=== PATIENT | female | born 1990 | race Caucasian/White ===

== ENCOUNTER 2022-12-31 12:17 | Emergency (ER) | payer OTHER, SELFPAY ==
[2022-12-31 12:34] VITALS: BP 130/66; PULSE 74; RESP 20; TEMP 35.8; O2SAT 99
--- NOTE | 2022-12-31 12:41 | ED.URI ---
HPI - URI/Sore Throat General Chief Complaint: Upper Respiratory Infection Stated Complaint: flu like symptoms Time Seen by Provider: 12/31/22 12:42 Source: patient Mode of arrival: ambulatory Limitations: no limitations History of Present Illness HPI Narrative: 32-year-old female presents with complaint of nasal congestion, sore throat, cough, body aches, chills for 3 days. Afebrile. Reports that she recently had her Mother's and several family members sick. States that they are all on an antibiotic at all feeling better. reports that her niece has strep. Is unsure what the other family members were diagnosed with. Patient denies chest pain and shortness of breath. No nausea vomiting diarrhea. All systems reviewed and negative except as noted above. Related Data Home Medications Medication Instructions Recorded Confirmed celecoxib 200 mg capsule 200 mg PO DAILY 12/31/22 12/31/22 gabapentin 300 mg capsule 200 mg PO DAILY 12/31/22 12/31/22 norgestimate 0.18 mg/0.215 mg/0.25 1 tablet PO DAILY 12/31/22 12/31/22 mg-ethinyl estradiol 25 mcg tablet sertraline 50 mg tablet 50 mg PO DAILY 12/31/22 12/31/22 Allergies Allergy/AdvReac Type Severity Reaction Status Date / Time nickel Allergy Unknown Rash Verified 12/31/22 12:35 Sulfa (Sulfonamide Allergy Unknown HIVES Verified 12/31/22 12:35 Antibiotics) sulfanilamide Allergy Unknown Hives Verified 12/31/22 12:35 Review of Systems Review of Systems: CONSTITUTIONAL: Denies fever, chills, or sweats. EYES: Denies visual changes, redness, or discharge. ENT: Reports rhinorrhea, congestion, sore throat. Denies otalgia. CARDIOVASCULAR: Denies chest pain, palpitations, or edema. RESPIRATORY: reports cough. Denies dyspnea. GASTROINTESTINAL: Denies abdominal pain, nausea, vomiting, or diarrhea. GENITOURINARY: Denies dysuria or hematuria. SKIN: Denies rash or itching. MUSCULOSKELETAL: Denies back pain, joint pain, or myalgia. NEUROLOGIC: Denies headache, numbness, or weakness. PSYCHIATRIC: Denies anxiety or depression. All other systems reviewed are negative, except as documented in HPI. [facility] Family History Family History (Updated 07/29/16 @ 23:19 by DOCTOR UNKNOWN) Father Hypertension Family history of diabetes mellitus in first degree relative Grandparent Diabetes mellitus Social History Social History Smoking status: Never smoker Alcohol intake: never Comments At time of signature, agree with nursing past medical, surgical, social and family history. There is no relevant family history pertinent to the presenting complaint. Exam Narrative: GENERAL: This is a well-nourished, well-developed patient, in no apparent distress. HEAD: normocephalic, atraumatic. EYES: PERRL. Sclera clear/white. Vision is grossly intact. EARS: External ears normal, auditory canals clear and without drainage, TMs normal without perforation. Hearing grossly intact. NOSE: External nose normal with clear nasal drainage. THROAT: Mucous membranes moist, Mild erythema with postnasal drainage. NECK: Neck supple, non-tender without lymphadenopathy, masses or thyromegaly. CARDIOVASCULAR: Regular rate and rhythm without murmurs, gallops, or rubs. RESPIRATORY: Clear to auscultation. Breath sounds equal bilaterally. No wheezes, rales, or rhonchi. SKIN: warm, Dry, intact with no suspicious lesions or rash, good texture and turgor. NEURO: awake, alert, and oriented to person, place and time. There were no obvious focal neurologic abnormalities. EXTREMITIES: No joint tenderness, effusion, or edema noted. Course Course Level of Care: Express Care Visit Vital Signs Vital signs: Vital Signs Temperature 35.8 C L 12/31/22 12:34 Pulse Rate 74 12/31/22 12:34 Respiratory Rate 20 12/31/22 12:34 Blood Pressure 130/66 12/31/22 12:34 Pulse Oximetry 99 12/31/22 12:34 Oxygen Delivery Room Air 12/31/22 12:34 Temperature 35.8 C L 12/31/22 12:34
== END 2022-12-31 13:10 | disposition home or self-care (01) ==
PROVIDERS: Emergency Provider Nurse Practitioner Family
DX: J06.9 Acute upper respiratory infection, unspecified (principal); Z20.822 Contact with and (suspected) exposure to COVID-19
CPT/HCPCS: 87081; 87426; 87804; 87880; 99213; C9803; G0463

== ENCOUNTER 2024-12-26 09:54 | Emergency (ER) | payer OTHER, MEDICAID, SELFPAY ==
--- OUTSIDE RECORDS SUMMARY | 2024-12-26 10:07 | XMS_ITS | Continuity of Care Document ---
Author Name [facility] Organization [facility] Care Team Providers Care Car Coupler Name Role Phone [facility] Unavailable Unavailable Problems Combined list of problems from Department [facility] and [facility] facilities. It does not include entries that were removed or entered in error. Problem Status Onset Date Problem Type Date of Resolution Comments Source Repeated prescription Active 5 Diagnosis [facility] [place] Repeated prescription Active 4 Diagnosis 012-[facility] [place] Repeated prescription Active 4 Diagnosis [facility] [place] Anxiety Active Condition [address] [place] [address] [place] Vitamin D deficiency Active Condition [address] [place] [address] [place] Follow-up Active Condition [address] [place] [address] [place] Morbid obesity Active Condition Unknown Organization Pain in right knee Active Condition [address] [place] [address] [place] Repeated prescription Active Condition [address] [place] [address] [place] Medications Combined list of outpatient medications from [facility] and [facility] facilities.Medications provided include 1) outpatient medications from the last 15 months, and 2) patient-reported medications. Medication Details Route Status Patient Instructions Prescription Expires Prescription Number Last Dispense Date Ordering Provider Order Date Order Qty Source Ambien CR 6.25 mg oral tablet, extended release 1 tab(s), Oral, every day at bedtime, PRN sleep, # 30 tab(s), 0 total refill(s ), Acute, 06/16/23 11:00:00 PM CDT, Pharmacy : [facility] Oral (given by mouth) Complet ed 06/17/2023 3 2022 30.0 [facility]121C[facility] [facility] Ambien CR 6.25 mg oral tablet, extended release 1 tab(s), Oral, every day at bedtime, PRN sleep, # 30 tab(s), 3 total refill(s ), Acute, 11/10/24 11:00:00 PM SMOKE [place], Pharmacy : [facility] Oral (given by mouth) Complet ed 11/11/2024 4 2024 30.0 0121C-A [facility] Ambien CR 6.25 mg oral tablet, extended release 1 tab(s), Oral, every day at bedtime, PRN sleep, # 30 tab(s), 0 total refill(s ), Acute, 08/23/23 11:00:00 PM SMOKE TESTER, Pharmacy : [facility] Oral (given by mouth) Complet ed 08/24/2023 3 2022 30.0 0121C-A [facility] [place] CeleBREX 200 mg oral capsule 1 cap(s), Oral, Daily, # 90 cap(s), 1 total refill(s ), Maintena sde, Pharmacy : [facility] Oral (given by mouth) Ordered 5 2023 90.0 0121C-A [facility] [place] CeleBREX 200 mg oral capsule 1 cap(s), Oral, Daily, # 90 cap(s), 1 total refill(s ), Maintena [facility]de, Pharmacy : [facility] Oral (given by mouth) Discont inued 07/24/2024 4 2023 90.0 0121C-A [facility] [place] CeleBREX 200 mg oral capsule 1 cap(s), Oral, Daily, # 90 cap(s), 1 total refill(s ), Maintena sde, Pharmacy : [facility] Oral (given by mouth) Discont inued 01/16/2024 3 2023 90.0 0121C-A [facility] [place] celecoxib 200 mg capsule See dose instruct ions in comments , # 90 EA, 0 total refill(s ), Acute Discont inued 12/07/2022 3 2022 90.0 Ambulat ory Pharmac y celecoxib 200 mg oral capsule 90 cap(s), 0 total refill(s ), Soft Stop Discont inued 12/07/20222022 [facility] clomiPHENE 50 mg oral tablet clomiPHE NE 50 mg oral tablet Start Date: 11/10/20 Stop Date: 12/07/22 Status: Disconti braulio Repeat number: 1 Discont inued 12/07/20222022 No Facilit y Access Cymbalta 30 mg oral delayed release capsule 1 cap(s), Oral, Daily, do not crush or chew, # 30 cap(s), 1 total refill(s ), [facility], Pharmacy : [facility] Oral (given by mouth) Discont inued 02/27/2024 4 2023 30.0 0121C-A [facility] s diclofenac 1% topical gel See instruct ions, Apply 2 grams (upper extremit ies) or 4 grams (lower extremit ies) to affected area topicall y four times daily as needed for pain. Max total body dose of 32 grams per day, # 100 g, 0 total refill(s ), [facility], Pharmacy : [facility] Ordered 3 2022 100.0 0121C[facility] ergocalcife rol 1.25 mg (50,000 intl units) oral capsule TAKE ONE CAPSULE BY MOUTH EVERY WEEK FOR VITAMIN- D DEFICIEN CY, # 12 EA, 1 total refill(s ), Acute Complet ed 09/04/2023 2 2022 12.0 Ambulat ory Pharmac y ergocalcife rol 1.25 mg (50,000 intl units) oral capsule 12 cap(s), 0 total refill(s ), Soft Stop Discont inued 12/07/20222022 0121C-A [facility] [facility] ergocalcife rol 1.25 mg (50,000 intl units) oral capsule ergocalc iferol 1.25 mg (50,000 intl units) oral capsule Start Date: 02/09/21 Stop Date: 12/07/22 Status: Jarrodi braulio Repeat number: 1 Discont inued 12/07/20222022 No Facilit y Access gabapentin 300 mg capsule See Rx Instruct ions, 0, # 90 EA, 0 total refill(s ), Acute Complet ed 04/16/2023 3 2022 90.0 Ambulat ory Pharmac y gabapentin 300 mg oral capsule 1 cap(s), Oral, TID, # 90 cap(s), 0 total refill(s ), Hard Stop, 08/13/23 2:27:39 PM S[place]KE [place], Pharmacy : [facility] Oral (given by mouth) Complet ed 08/13/2023 3 2022 90.0 [facility] [facility] gabapentin 300 mg oral capsule 1 cap(s), Oral, TID, # 90 cap(s), 0 total refill(s ), Hard Stop, 09/23/24 11:03:35 AM SMOKE TESTER, Pharmacy : [facility] Oral (given by mouth) Complet ed 09/23/2024 4 2023 90.0 [facility] gabapentin 300 mg oral capsule 1 cap(s), Oral, TID, # 90 cap(s), 2 total refill(s ), Maintena sde, Pharmacy : [id number] Oral (given by mouth) Ordered 2024 90.0 0121C-A [facility] [facility] gabapentin 300 mg oral capsule 1 cap(s), Oral, TID, # 90 cap(s), 0 total refill(s ), Maintena [facility]de, Pharmacy : [facility] Oral (given by mouth) Discont inued 01/16/20242023 90.0 0121C-A [facility] [facility] gabapentin 300 mg oral capsule 1 cap(s), Oral, TID, # 90 cap(s), 0 total refill(s ), Maintena sde, Pharmacy : [id number] Oral (given by mouth) Discont inued 07/24/20242023 90.0 0121C-A [facility] [facility] gabapentin 300 mg oral capsule 90 cap(s), 0 total refill(s ), Soft Stop Discont inued 12/07/20222022 [facility] [facility] gabapentin 300 mg oral capsule 1 cap(s), Oral, TID, # 90 cap(s), 0 total refill(s ), Maintena nce, Pharmacy : [facility] Oral (given by mouth) Discont inued 10/20/2024 4 2024 90.0 [facility] gabapentin 300 mg oral capsule 1 cap(s), Oral, TID, # 90 cap(s), 0 total refill(s ), Maintena nce, Pharmacy : [facility] Oral (given by mouth) Discont inued 02/03/2024 4 2023 90.0 0121C-A [facility] gabapentin 400 mg oral capsule 1 cap(s), Oral, Daily, at bedtime, # 90 cap(s), 3 total refill(s ), Maintena nce Oral (given by mouth) Discont inued 02/27/20242023 90.0 [facility] [facility] gabapentin 600 mg oral tablet 1 tab(s), Oral, every day at bedtime, # 90 tab(s), 1 total refill(s ), Maintena sde, Pharmacy : [facility] Oral (given by mouth) Discont inued 05/25/2024 4 2023 90.0 [facility] gabapentin 600 mg oral tablet 1 tab(s), Oral, every day at bedtime, # 30 tab(s), 0 total refill(s ), Maintena sde, Pharmacy : [id number] Oral (given by mouth) Ordered 2023 30.0 [facility] gabapentin 600 mg oral tablet 1 tab(s), Oral, every day at bedtime, # 30 tab(s), 0 total refill(s ), Maintena sde, Pharmacy : [id number] Oral (given by mouth) Discont inued 05/27/20242023 30.0 0121C-A [facility] s glyBURIDE 2.5 mg oral tablet glyBURID E 2.5 mg oral tablet Start Date: 01/27/21 Stop Date: 12/07/22 Status: Disconti nued Repeat number: 1 Discont inued 12/07/20222022 No Facilit y Access glyBURIDE 2.5 mg oral tablet glyBURID E 2.5 mg oral tablet Start Date: 12/29/20 Stop Date: 12/07/22 Status: Disconti nued Repeat number: 1 Discont inued 12/07/20222022 No Facilit y Access hydrOXYzine hydrochlori de 25 mg oral tablet 1 tab(s), Oral, BID, PRN anxiety, # 40 tab(s), 1 total refill(s ), [facility], Pharmacy : [facility] Oral (given by mouth) Ordered 4 2023 40.0 0121C-A [facility] s ibuprofen 800 mg oral tablet 1 tab(s), Oral, TID, PRN pain, with food or milk Do not take together with Celebrex , alleve, or any other OTC nsaids, # 30 tab(s), 0 total refill(s ), [facility], Pharmacy : [facility] Oral (given by mouth) Discont inued 05/16/2023 2022 30.0 0121C-A [facility] s MODERNA COVID-19 VACCINE (EUA) (COVID-19 vaccine, mRNA, [id number], LNP-S (Moderna)/P F), 100MCG/0.5, MODERNA COVID-19 VACCINE (EUA) (COVID-1 9 vaccine, mRNA, [id number], LNP-S (Moderna )/PF), 100MCG/0 .5, Start Date: 08/15/21 Stop Date: 12/07/22 Status: Complete d Repeat number: 1 Complet ed 12/07/20222022 No Facilit y Access nitrofurant oin macrocrysta ls-monohydr ate 100 mg oral capsule 0 total refill(s ) Complet ed 12/07/20222022 No Facilit y Access norethindro ne 0.35 mg oral tablet 28 EA, TAKE 1 TABLET BY MOUTH EVERY DAY, 0 total refill(s ), Soft Stop Discont inued 12/07/20222022 0121C-A [facility] s norethindro ne 0.35 mg oral tablet norethin drone 0.35 mg oral tablet Start Date: 01/10/22 Stop Date: 12/07/22 Status: Disconti nued Repeat number: 1 Discont inued 12/07/20222022 No Facilit y Access norgestimat e triphasic/E E 25 mcg tablet (28) See dose instruct ions in comments , # 84 EA, 0 total refill(s ), Acute Discont inued 05/16/2023 2022 84.0 Ambulat ory Pharmac y norgestimat e-ethinyl estradiol triphasic (0.18 mg-0.215 mg-0.250 mg)-25 mcg oral tablet 84 tab(s), 0 total refill(s ), Soft Stop Discont inued 12/07/20222022 [facility] oral tablet, disintegrat ing ondanset gwyn 4 mg oral tablet, disinteg rating Start Date: 09/08/21 Stop Date: 12/07/22 Status: Complete d Repeat number: 1 Complet ed 12/07/20222022 No Facilit y Access ondansetron 4 mg oral tablet, disintegrat ing ondanset gwyn 4 mg oral tablet, disinteg rating Start Date: 04/20/21 Stop Date: 12/07/22 Status: Disconti nued Repeat number: 1 Discont inued 12/07/20222022 No Facilit y Access ondansetron 8 mg oral tablet ondanset gwyn 8 mg oral tablet Start Date: 07/07/21 Stop Date: 12/07/22 Status: Complete d Repeat number: 1 Complet ed 12/07/20222022 No Facilit y Access OXYCODONE-A CETAMINOPHE N (OXYCODONE HCL/ACETAMI NOPHEN), 5MG-325MG, TABLET, ORAL, MALLINKRT PHARM, 50 OXYCODON E-ACETAM INOPHEN (OXYCODO NE HCL/ACET AMINOPHE N), 5MG-325M G, TABLET, ORAL, MALLINKR T PHARM, 50 Start Date: 12/05/21 Stop Date: 12/07/22 Status: Disconti nubecki Repeat number: 1 Discont inued 12/07/20222022 No Facilit y Access phentermine 37.5 mg oral capsule 1 cap(s), Oral, Daily, # 30 cap(s), 0 total refill(s ), Acute, Pharmacy : [facility] Oral (given by mouth) Complet ed 06/16/20232022 30.0 0121C-A [facility] [facility] phentermine 37.5 mg oral tablet 1 tab(s), Oral, Daily, # 30 tab(s), 0 total refill(s ), Acute, Pharmacy : [facility] Oral (given by mouth) Discont inued 01/28/2024 3 2023 30.0 0121C-A [facility] [facility] Multivitami ns with Folic Acid 1 mg oral tablet Multivit amins with Folic Acid 1 mg oral tablet Start Date: 02/14/21 Stop Date: 12/07/22 Status: Jarrodi braulio Repeat number: 1 Discont inued 12/07/20222022 No Facilit y Access sertraline 100 mg oral tablet 1 tab(s), Oral, Daily, X 90 days, # 90 tab(s), 1 total refill(s ), Acute, Pharmacy : [facility] Oral (given by mouth) Complet ed 11/11/2023 3 2023 90.0 0121C-A [facility] sertraline 100 mg oral tablet 90 tab(s), 0 total refill(s ), Soft Stop Discont inued 12/07/20222022 0121C-A [facility] [facility] sertraline 100 mg oral tablet sertrali ne 100 mg oral tablet Start Date: 11/15/20 Stop Date: 12/07/22 Status: Disconti nued Repeat number: 1 Discont inued 12/07/20222022 No Facilit y Access sertraline 100 mg oral tablet sertrali ne 100 mg oral tablet Start Date: 11/15/20 Stop Date: 12/07/22 Status: Disconti nued Repeat number: 1 Discont inued 12/07/20222022 No Facilit y Access sertraline 100 mg oral tablet sertrali ne 100 mg oral tablet Start Date: 12/29/20 Stop Date: 12/07/22 Status: Disconti nued Repeat number: 1 Discont inued 12/07/20222022 No Facilit y Access sertraline 100 mg oral tablet sertrali ne 100 mg oral tablet Start Date: 03/07/21 Stop Date: 12/07/22 Status: Disconti nued Repeat number: 1 Discont inued 12/07/20222022 No Facilit y Access sertraline 100 mg tablet See dose instruct ions in comments , # 90 EA, 1 total refill(s ), Acute Complet ed 05/15/2023 3 2022 90.0 Ambulat ory Pharmac y sertraline 50 mg oral tablet 1 tab(s), Oral, Daily, # 30 tab(s), 0 total refill(s ), Maintena nce Oral (given by mouth) Discont inued 02/19/20242023 30.0 0121C-A [facility] [facility] sertraline 50 mg oral tablet sertrali ne 50 mg oral tablet Start Date: 07/07/21 Stop Date: 12/07/22 Status: Disconti nued Repeat number: 1 Discont inued 12/07/20222022 No Facilit y Access Zoloft 100 mg oral tablet 1 tab(s), Oral, Daily, # 90 tab(s), 1 total refill(s ), [facility], Pharmacy : [facility] Oral (given by mouth) Discont inued 02/03/2024 4 2023 90.0 [facility] Zoloft 100 mg oral tablet 1 tab(s), Oral, Daily, # 30 tab(s), 1 total refill(s ), [facility], Pharmacy : [facility] Oral (given by mouth) Complet ed 09/23/2024 4 2023 30.0 [facility] Zoloft 100 mg oral tablet 1 tab(s), Oral, Daily, # 90 tab(s), 1 total refill(s ), [facility], Pharmacy : [facility] Oral (given by mouth) Discont inued 05/25/2024 4 2023 90.0 0121C-[facility] Zoloft 100 mg oral tablet 1 tab(s), Oral, Daily, # 30 tab(s), 0 total refill(s ), [facility], Pharmacy : [id number] Oral (given by mouth) Discont inued 06/29/20242023 30.0 0121C-[facility] Zoloft 100 mg oral tablet 1 tab(s), Oral, Daily, # 30 tab(s), 1 total refill(s ), [facility], Pharmacy : [facility] Oral (given by mouth) Ordered 5 2023 30.0 0121C-A [facility] Zoloft 100 mg oral tablet 1 tab(s), Oral, Daily, # 30 tab(s), 0 total refill(s ), [facility], Pharmacy : [id number] Oral (given by mouth) Discont inued 07/27/20242023 30.0 [facility]121C-A [facility] Allergies, Adverse Reactions, Alerts Combined list of allergies from [facility] of Defense and [facility] facilities. It does not include entries that were removed or entered in error. Substance Category Reaction Severity Reaction type Status Date Reported Comments Source sulfonamides Propensity to adverse reactions to substance Rash Active 6 Unknown Organizat ion Immunizations Combined list of available immunizations from the Department of Defense and Veterans Affairs facilities. Immunization Series Date Given Administered By Site Reaction Lot Number CVX Code Drug Trade Embalmer Status Comments Source COVID Vaccine Moderna 2020 KEYATTANMANUE L 207 complet ed Result Comment: Unit: Unknown Manufactu rer: () [facility]C-[facility] [facility] COVID Vaccine Moderna 2020 zzLef t Arm [id number] complet ed COVID Vaccine Moderna 01/24/21 Given Ambulat ory Pharmac y COVID Vaccine Moderna 2020 zzLef t Arm [id number] complet ed COVID Vaccine Moderna 12/27/20 Given Ambulat ory Pharmac y Results Combined list of recent chemistry, hematology and other laboratory results from [facility], ranging from 15 months to all on record, depending upon the facility. Order Name Results Value Reference Range Date Interpretation Specimen Comments Source Infectio us Disease Source of Test.LC STD Visit (02/14/24 1:14 PM) 02/[address] [place] [address] Infect us Disease HIV-1/2 AG/AB 4G CDD LC NEGATIVE 02/13 Result Comment: Performed At: 1 [facility] [address] [place] [address] [address] [place] [address] ALBAN JERI PHD Ph:[phone] [address] [place] [address] [place] Chemistr y Alk Phos 115 U/L 46 - 116 02/[address] [place] [address] [place] [facility] A/G Ratio 0.9 1.0 - 1.8 02/[address] [place] [address] [place] [facility] Albumin 3.2 mg/dL 3.4 - 5.0 02/[address] [place] [address] [place] [facility] ALT 32 U/L 14 - 59 02/[address] [place], [place] [address] Chem[facility] Bilirubin Total 0.4 mg/dL 0.2 - 1.0 02/[address] [place], [place] [address] Chem[facility] Protein Total 6.8 g/dL 6.4 - 8.2 02/[address] [place], [place] [address] Chem[facility] AST 17 U/L 15 - 37 02/[address] [place] [address]- [place] Chem[facility] Bilirubin Direct 0.10 mg/dL 0.00 - 0.20 02/[address] [place] [address]- [place] Immunolo gy/Serol ogy Hep A Ab IgM Negative 2 (02/14/24 1:12 PM) 02/13 N Interpretiv e Data: NEGATIVE: Negative for IgM antibodies to Hepatitis A Virus. EQUIVOCAL: Indetermina te, repeat testing with new specimen is recommended . POSITIVE: Positive for IgM antibodies to Hepatitis A Virus Because tests may have false-posit alexandro results, do not rely on any single test result as the sole determinate in diagnosing Hepatitis A. The clinical case definition for acute Hepatitis A is, An acute illness with a) discrete onset of symptoms and b) jaundice or elevated serum aminotransf erase levels. Symptoms of Hepatitis A include fatigue, abdominal pain, loss of appetite, intermitten t nausea, vomiting, diarrhea and fever. Notifiable result/cond ition for Local/State PH department, notify your local public health immediately for proper notificatio n. The performance characteris tics of this assay have not been evaluated for use in pediatric populations . Testing performed by [facility]. [id number] Immunolo gy/Serol ogy Hep A Ab Positive 8 (02/03/24 10:08 AM) 02/02 N Interpretiv e Data: NEGATIVE: Indicates susceptibil ity to Hepatitis A Infection. EQUIVOCAL: It is recommended that a specimen be drawn in two weeks and retested. POSITIVE: Indicates prior or acute infection, or immunizatio n to Hepatitis A. This assay does not distinguish among different classes of antibodies. The assay cannot be used to determine if a positive sample is due to an acute infection or is the result of a previous infection. The sample should be tested in a specific HAV IgM assay if the overall clinical picture is indicative of an ongoing, acute or recent infection. Testing performed by [facility] [employer] [facility]. [facility] Immunolo gy/Serol ogy Hep B Core Ab Nonreact alexandro *NA* (02/03/24 10:08 AM) 02/[address] [place] [address] Immunolo gy/Serol ogy Hep B Surface Ab Nonreact alexandro 7 *NA* (02/03/24 10:08 AM) 02/02 Interpretiv e Data: Nonreactive : A result of <8.00 mIU/mL indicates that the result is below the test's Limit of Detection (LoD). The sample is Negative f or anti-HBs and the individual is not immune to HBV infection. Reactive: This result is consistent with levels of anti- HBs at 12.00 mIU/mL, which indicates that anti-HBs has been detected at levels consistent with protective immunity against HBV infection. [place]: The immune status of the individual should be further assessed by considering other factors such as clinical status, follow up testing, associated risk factors, and the use of additional diagnostic information . [address] [place] [address] Immunolo gy/Serol ogy Hep B Surface Ag Nonreact alexandro mIU/mL 02/02 Interpretiv e Data: The results from this or any other diagnostic test should be used and interpreted only in the context of the overall clinical Picture. Individuals recently vaccinated for hepatitis B may give a transient positive result for HBsAg because of its presence in the vaccine. HBsAg results should only be used and interpreted in the context of the overall clinical picture. A negative test result does not exclude the possibility of exposure to or infection with hepatitis B virus. Levels of HBsAg may be undetectabl e in both early and late after infection. In rare cases HBsAg tests do not detect certain HBV mutant strains. Testing using alternative methodologi es may be warranted if signs, symptoms, and risk factors are indicative of viral hepatitis and other laboratory tests are nonreactive for the diagnosis of viral hepatitis. Heparin and citrate have been shown to lower the signal values in some HBsAg reactive samples. High negative results (0.80-0.99) obtained on samples collected with these anticoagula nts should be interpreted accordingly . Supplementa l tests may be required. [address] [place] [address] Immunolo gy/Serol ogy Hep C Ab Negative 3 (02/03/24 10:08 AM) 02/02 N Interpretiv e Data: NEGATIVE - Antibodies to HCV were not detected; does not exclude the possibility of exposure to HCV. PRESUMPTIVE POSITIVE - Presumptive evidence of antibodies to HCV. Follow [facility] recommendat ions for supplementa l testing. Refer to updated guidance Testing HCV Infection: An Update of Guidance for Clinicians and Laboratoria ns for additional information and recommended HCV testing algorithm (Centers for Disease Control and Prevention, MMWR Early Release / Vol. 62 / February 10, 2013). Notifiable result/cond ition for Local/State PH department, notify your local public health immediately for proper notificatio n. Testing performed by [facility] [employer] [facility]. [facility] [facility] Molecula r Infectio us Disease HSV-2 DNA LC Negative 02/02 Result Comment: This test was developed and its performance characteris tics determined by [facility]. It has not been cleared or approved by the U.S. Food and Drug Administrat ion. The FDA has determined that such clearance or approval is not necessary. This test is used for clinical purposes. It should not be regarded as investigati onal or research. Performed At: [address] [id number] Shimon Borja MD Ph:[phone] [place] [address] [facility] Infectio us Disease HSV-1 DNA LC Negative 02/[address] [place] [address] Joaquín Durbin Immunolo gy/Serol ogy Treponema pallidum Ab Non-Reac tive 9 (02/03/24 10:07 AM) 02/02 N Interpretiv e Data: NON-REACTIV E: No laboratory evidence of syphilis infection. A negative result cannot exclude incubating or early primary syphilis. If recent exposure is suspected, submit another sample in 2 - 4 weeks to repeat testing. REACTIVE: Suggest infection with Treponema pallidum at some point in the past, but does not distinguish between treated and untreated infection. All REACTIVE results will automatical ly reflex to a supplementa l Syphilis assay in accordance to the Center for Disease Control and Prevention (CDC) diagnostic algorithm. Methodology : Electrochem iluminescen t immunoassay (ECLIA) The performance characteris tics of this assay have not been evaluated for use in pediatric populations . Notifiable result/cond ition for Local/State Public Health (PH) department, notify your local PH immediately for proper notificatio n. 5600A-[place] FSAM EPILAB Infectio us Disease Source of Test.LC STD Visit (02/03/24 10:07 AM) 02/[address] [place] [address] [place] Infectio us Disease HIV-1/2 AG/AB 4G CDD LC TEST NOT PERFORME D 02/02 Result Comment: SPECIMEN NOT SPUN DOWN [address] [place] [address] [place] Molecula r Infectio us Disease Neisseria gonorrhoea e ALEXANDRE LC Negative 02/02 Result Comment: Performed At: [address] [id number] Shimon Borja MD Ph:[phone] [place] [address] [place] [facility] Infectio us Disease Chlamydia trach ALEXANDRE Negative 02/[address] [place] [address] [facility] TSH 1.4017 0.3500 - 4.9400 05/[address] [place] [address] [place] [facility] CO2 26.0 meq/L 22.0 - 29.0 05/[address] [place] [address] [facility] [facility] A/G Ratio 1.0 1.0 - 1.8 05/[address] [place], [place] [address]out h Chemistr y Creatinine Level 0.80 mg/dL 0.50 - 1.00 05/[address] [place] [address] [place] [facility] BUN 12.6 mg/dL 7.0 - 18.7 05/[address] [place], [place] [address]out h Chemistr y AGAP 7 05/[address] [place], [place] [address]out h Chemistr y Sodium 141 mmol/L 136 - 145 05/[address] [place] [address] h Chemistr y Protein Total 7.3 g/dL 6.4 - 8.3 05/27 N Interpretiv e Data: Plasma values are generally 0.3 to 0.5 g/dL (3 to 5 g/L) higher than serum values due to the presence of fibrinogen. [address] [place] [address] Chemistr y Calcium 8.8 mg/dL 8.4 - 10.2 05/[address] [place] [address] Chemistr y AST 17 U/L 5 - 34 05/[address] [place] [address] Chemistr y ALT 18 U/L 5 - 55 05/[address] [place] [address] Chemistr y Glucose Lvl 94 mg/dL 70 - 99 05/[address] [place] [address] Chemistr y Potassium Lvl 4.1 mmol/L 3.4 - 4.4 05/[address] [place] [address] Chemistr y Alk Phos 108 U/L 40 - 150 05/[address] [place] [address] Chemistr y Bilirubin Total 0.4 mg/dL 0.2 - 1.2 05/27 N Interpretiv e Data: For patients undergoing evaluations involving the administrat ion of indocyanine green (ICG), it is recommended that samples are drawn after ICG has been eliminated. In samples where the concentrati on of bilirubin is low, or where conjugated bilirubin is the predominant form, the Direct Bilirubin assay may report results that are greater than results obtained using the Total Bilirubin assay. Under these circumstanc es, report the Total Bilirubin results for both the Total Bilirubin and Direct Bilirubin assays. [address] [place] [address] Chemistr y BUN/Creat Ratio 15.80 ratio 05/[address] [place] [address] Chemistr y Chloride 108 mmol/L 98 - 107 05/[address] [place] [address] Chemistr y Albumin 3.7 g/dL 3.5 - 5.2 05/[address] [place] [address] Chemistr y Vitamin D 25 OH 26.5 ng/mL 30.0 - 100.0 05/27 L Interpretiv e Data: Deficient/I nsufficient : <30 ng/mL Sufficient: 30 ng/mL - 100 ng/mL Vitamin D Toxicity >100 ng/mL [address] [place] [address] Chemistr y eGFR CKD EPI 99 mL/min 05/27 Interpretiv e Data: Estimated Glomerular Filtration Rate (eGFR) calculated using the 2020 Chronic Kidney Disease-Epi demiology (CKD-EPI) Collaborati on creatinine equation; units of measure are mL/min/1.73 m2. Results are only valid for adults (>=18 years) whose serum creatinine is in steady state. eGFR calculation s are not valid for patients with acute kidney injury and for patients on dialysis. Creatinine- based estimates of kidney function may also be inaccurate in patients with reduced creatinine generation due to decreased muscle mass (e.g., malnutritio n, severe hypoalbumin emia, sarcopenia, chronic neuromuscul ar disease, amputations , severe heart failure or liver disease) and in patients with increased creatinine generation due to increased muscle mass (e.g., muscle builders, anabolic steroids) or increased dietary intake. CKD is diagnosed based on abnormaliti es of kidney structure or function, present for >3 months, with implication s for health and disease. CKD is classified and staged based on cause, eGFR and albuminuria (quantified as urine albumin to creatinine ratio). An eGFR >60 mL/min/1.73 m2 in the absence of increased urine albumin excretion or structural abnormaliti es does not represent CKD. eGFR provides only an estimate of measured GFR within +/- 30% for most patients. As mentioned, nutritional status and muscle mass, among many factors, may lead to inaccuracy in the estimate. Consider ordering the creatinine- cystatin C panel if better accuracy is needed for clinical decision-omaira sousa. eGFR (mL/min/1.7 3 m2) CKD stage Interpretat ion >=90 G1 Normal 60-89 G2 Mild decrease 45-59 G3A Mild to moderate decrease 30-44 G3B Moderate to severe decrease 15-29 G4 Severe decrease <15 G5 Kidney failure [facility] Vital Signs Combined list of inpatient and outpatient Vital Signs from Department of Defense and Veterans Affairs, ranging from 12 months to all on record, depending upon the facility. Vital Sign Value Date Comments Source Respiratory Rate 18 br/min 12/07/2022 18:28:[address] [place] [address] [facility] Systolic Blood Pressure 110 mm[Hg] 12/07/2022 18:28:[address] [place] [address] [facility] Diastolic Blood Pressure 73 mm[Hg] 12/07/2022 18:28:[address] [place], [place] [address] Peripheral Pulse Rate 75 bpm 12/07/2022 18:28:00 [facility] [place] Blood Pressure Manual Automatic 12/07/2022 18:28:00 [facility] [place] BP Site Right arm 12/07/2022 18:28:00 [facility] [place] Mean Arterial Pressure, Calc 85 mm[Hg] 12/07/2022 18:28:00 [facility] [place] Temperature Oral 36.6 Bridgett 12/07/2022 18:28:00 [facility] [place] Temperature Oral 36.8 Bridgett 02/03/2024 13:12:00 [facility] [place] Peripheral Pulse Rate 88 bpm 02/03/2024 13:12:00 [facility] [place] Blood Pressure Manual Automatic 02/03/2024 13:12:00 [facility] [place] Mean Arterial Pressure, Calc 105 mm[Hg] 02/03/2024 13:12:00 [facility] [place] BP Site Left arm 02/03/2024 13:12:00 [facility] [place] Systolic Blood Pressure 135 mm[Hg] 02/03/2024 13:12:00 [facility] [place] Diastolic Blood Pressure 90 mm[Hg] 02/03/2024 13:12:00 [facility] [place] Respiratory Rate 18 br/min 02/03/2024 13:12:00 [facility] [place] Mean Arterial Pressure, Calc 91 mm[Hg] 01/28/2024 11:50:00 [facility] [place] Blood Pressure Manual Automatic 01/28/2024 11:50:00 [facility] [place] Peripheral Pulse Rate 74 bpm 01/28/2024 11:50:00 [facility] [place] BP Site Left arm 01/28/2024 11:50:00 [facility] [place] Temperature Oral 36.9 Bridgett 01/28/2024 11:50:00 [facility] [place] Respiratory Rate 16 br/min 01/28/2024 11:50:00 [facility] [place] Systolic Blood Pressure 114 mm[Hg] 01/28/2024 11:50:00 [facility] [place] Diastolic Blood Pressure 80 mm[Hg] 01/28/2024 11:50:00 [facility] [place] Encounters Combined list of: 1) Encounters from Department of Veterans Affairs facilities going backup to the last 18 months, not all ID inpatient encounters are included; 2) Encounters from the [facility] of [facility] facilities going backup to 280 months. Location Location Details Encounter Type Encounter Number Reason For Visit Attending Provider ADM Date DC Date Status [facility] [place] [facility] Visit [id number] 07/24 Discharge Disposition: Home or Self Care [facility] [place] [id number] Discharge Disposition: Home or Self Care [facility] [place] [facility] [id number] [facility] 09/23 Discharge Disposition: Home or Self Care [facility] [place] [facility] [id number] [facility] 09/23 Discharge Disposition: Home or Self Care 012Reuben-A AIMEE Khan d-[place] [facility] [address] [place] [address] [place] [facility] [id number] [facility] 10/20 Discharge Disposition: Home or Self Care [facility] [facility] Procedures Combined list of: 1) Procedures from Department of Veterans Affairs facilities going back up to thelast 18 months, not all ID non-surgical procedures are included; 2) All procedures from the [facility] of [facility] facilities. Procedure Procedure Type Code Date Perfomer Comments Sourc e No data available for this section Ambulatory P harmacy Social History Combined list of available smoking, tobacco, and other social history from Department of Defense and Veterans Affairs facilities. Social History Type Response Date Comment [facility] e Sex Representation Female 01/29/2022 Unknow n Organization Tobacco Frequent/Daily expos ure to secondhand smoke in indoor/confined spaces No. Cigarette use: Never-cigarette user. Other Tobacco use: Never-other tobacco user (not cigarettes). Ambulatory Pharmacy Sexual Orientation Ambula tory Pharmacy Gender identity Ambulator y Pharmacy Assessment and Plan Combined list of future care activities from Department of Defense and Veterans Affairs facilities (e.g., assessment and plan notes, appointments, orders, and referrals). Additional future care activities may be listed in the Plan of Care section. Result Assessment and Plan Date Source Assessment and Plan Extracted from:Title : [facility] ~ lab review, med refills, anxiety Author: VICTOR MANUEL العراقي NP Date: 02/27/24 1. R epeated prescription Patient requests refill on previously prescribed medication. Patient's chart reviewed including l atest relevant medication list and allergies. M ed reported effective and no report of SE or other concerns. Continuation of medication is appropriate at this time. M edication order entered. States she was trying to wean off Cymbalta but had issue with her family and is in rehab.? Saw another provider and recommended holding on wean due to unforeseen family dynamic change and continue Zoloft 100 mg daily. States she is doing well with that but does have occasional breakthrough anxiety and would like something for this. She also needs refill on Gabapentin, states she i s taking 300 mg capsule 3 tabs at night. Informed we will decrease to 600 mg daily. 2. A nxiety Will add hydroxyzine 25 mg BID prn anxiety- has been informed of drowsiness w/ this medication [facility] i ncluding [facility] and [facility] were checked for controlled medications prescriptions and no doctor shopping found. 3. F ollow-up lab results given to patient, advised HIV negative and has immunity to Hep A- there is no active infection Orders: gabapentin(gabapentin 600 mg oral tablet), 1 tab(s), Oral, every day at bedtime, # 90 tab(s), 1 total refill(s), Maintenance, 1 tab(s) Oral every day at bedtime, Pharmacy: [facility] [Not filled] hydrOXYzine(hydrOXYzine hydrochloride 25 mg oral tablet), 1 tab(s), Oral, BID, PRN anxiety, # 40 tab(s), 1 total refill(s), Maintenance, 1 tab(s) Oral BID,PRN:anxiety, Pharmacy: [facility] [Not filled] Discharge instructions discussed with patient. Patient's mental health issues are stable. Patient denies hurting self or others. No acute behavioral intervention needed. Patient verbalized understanding and agreement with plan; all questions were answered to patient satisfaction. This visit entailed 1 5 minutes with patient, reviewing and updating the record, counseling, or coordinating care. Please note that this documentation was created using voice dictation software. Although it has been proofread for accuracy, minor errors may still be present. Please contact me with any questions. MANUEL Palumbo Family Nurse Practitioner [place] Extracted from:Title: [facility] STD screening Author: FERNANDO KEVIN MD Date: 02/03/24 1. E ncounter for screening, unspecified We will go and screen her for various STIs. Aisha ham does not have any pelvic S TI symptoms so we will avoid doing a pelvic exam, aisha ham agreed and consented. She wants to actually do although your blood work Ordered: Chlamydia/GC Amplification [id number] Hepatitis A,B,C Panel HIV-1/O/2 CDD HSV 1/2 PCR [id number] Syphilis Panel Extracted from:Title: [facility] ~ referral allergy, nerve pain Author: VICTOR MANUEL العراقي NP Date: 01/28/24 1. N euralgia Pt will taper off Gabapentin 300 mg 3 tabs at night over the next 3-4 weeks She will also taper off Zoloft to begin starting Cymbalta 30 mg daily F/u virtual in 4 weeks 2. A llergy referral for allergy/immunology for testing Ordered: Referral Request 2.0 - [facility] Orders: DULoxetine(Cymbalta 30 mg oral delayed release capsule), 1 cap(s), Oral, Daily, do not crush or chew, # 30 cap(s), 1 total refill(s), Maintenance, 1 cap(s) Oral Daily,Instr:do not crush or chew, Pharmacy: [facility] [Not filled] Patient's mental health issues are stable. Patient denies hurting self or others. No acute behavioral intervention needed. Patient verbalized understanding and agreement with plan; all questions were answered to patient satisfaction. This visit entailed 2 5 minutes with patient, reviewing and updating the record, counseling, or coordinating care. Please note that this documentation was created using voice dictation software. Although it has been proofread for accuracy, minor errors may still be present. Please contact me with any questions. MANUEL Palumbo Family Nurse Practitioner [place] Extracted from:Title: isomnia/depression/Clinic Note Author: ROXI BRISCOE NP Date: 05/16/23 1. I nsomnia will try ambien CR take her gabapentin at dinner and trial of the ambien cr at bedtime if too drowsy then hold gabapentin patient verbalizes understanding 2. D epression, unspecified Increased zoloft to 100mg; consider counseling when she returns from [facility] Ordered: Comprehensive Metabolic Panel 3. V itamin D deficiency, unspecified check labs Ordered: Vitamin D 25 Hydroxy Level 4. O besity due to excess calories advised to continue exercise limit calories/ fat/ carbs in diet; trial of phentermine has taken in the past Ordered: Thyroid Stimulating Hormone 5. V itamin D deficiency check vitamin d levels low on last check Orders: zolpidem(Ambien CR 6.25 mg oral tablet, extended release), 1 tab(s), Oral, every day at bedtime, PRN sleep, # 30 tab(s), 0 total refill(s), Acute, 06/17/2023, 1 tab(s) Oral every day at bedtime,PRN:sleep, Pharmacy: [facility] [Not filled] celecoxib(CeleBREX 200 mg oral capsule), 1 cap(s), Oral, Daily, # 90 cap(s), 1 total refill(s), Maintenance, 1 cap(s) Oral Daily, Pharmacy: [facility] [Not filled] gabapentin(gabapentin 300 mg oral capsule), 1 cap(s), Oral, TID, # 90 cap(s), 0 total refill(s), Maintenance, 1 cap(s) Oral TID, Pharmacy: [facility] [Not filled] phentermine(phentermine 37.5 mg oral capsule), 1 cap(s), Oral, Daily, # 30 cap(s), 0 total refill(s), Acute, 1 cap(s) Oral Daily, Pharmacy: [facility] [Not filled] sertraline(sertraline 100 mg oral tablet), 1 tab(s), Oral, Daily, X 90 days, # 90 tab(s), 1 total refill(s), Acute, 1 tab(s) Oral Daily,x90 days, Pharmacy: [facility] [Not filled] Extracted from:Title: [facility]-R knee pain Author: MARTHA TAFOYA NP Date: 12/07/22 1. P ain in right knee On and off R knee cap p ain x 1 month- No pain on today's visit- pain is intermittent with movement, with grinding and pressure feeling. O TC N SAIDs, o ffers relief but pain has not abated completely Knee exam- Non tender to p alpation, f ull range of motion, no warmth, swelling, deformity X ray, pain control, cold/warm compress, Knee support Open to starting PT f/u if no improvement with PT Ordered: diclofenac topical(diclofenac 1% topical gel), See instructions, Apply 2 grams (upper extremities) or 4 grams (lower extremities) to affected area topically four times daily as needed for pain. Max total body dose of 32 grams per day, # 100 g, 0 total refill(s), Maintenance, Apply 2 grams (upper e... ibuprofen(ibuprofen 800 mg oral tablet), 1 tab(s), Oral, TID, PRN pain, with food or milk Do not take together with Celebrex, alleve, or any other OTC nsaids, # 30 tab(s), 0 total refill(s), Maintenance, 1 tab(s) Oral TID,PRN:pain,Instr:with food or milk; Do not take together with Celebre... XR Knee Complete 4+ Views Right Referral Request 2.0 Future Scheduled TestsLaboratoryHepatitis A,B,C Panel 02/03/24 12/26/[address] [place] [address] [place] Assessment and Plan Extracted from:Title : [facility] ~ lab review, med refills, anxiety Author: VICTOR MANUEL العراقي NP Date: 02/27/24 1. R epeated prescription Patient requests refill on previously prescribed medication. Patient's chart reviewed including l atest relevant medication list and allergies. M ed reported effective and no report of SE or other concerns. Continuation of medication is appropriate at this time. M edication order entered. States she was trying to wean off Cymbalta but had issue with her family and is in rehab.? Saw another provider and recommended holding on wean due to unforeseen family dynamic change and continue Zoloft 100 mg daily. States she is doing well with that but does have occasional breakthrough anxiety and would like something for this. She also needs refill on Gabapentin, states she i s taking 300 mg capsule 3 tabs at night. Informed we will decrease to 600 mg daily. 2. A nxiety Will add hydroxyzine 25 mg BID prn anxiety- has been informed of drowsiness w/ this medication [facility] prescriptions and no doctor shopping found. 3. F ollow-up lab results given to patient, advised HIV negative and has immunity to Hep A- there is no active infection Orders: gabapentin(gabapentin 600 mg oral tablet), 1 tab(s), Oral, every day at bedtime, # 90 tab(s), 1 total refill(s), Maintenance, 1 tab(s) Oral every day at bedtime, Pharmacy: [facility] [Not filled] hydrOXYzine(hydrOXYzine hydrochloride 25 mg oral tablet), 1 tab(s), Oral, BID, PRN anxiety, # 40 tab(s), 1 total refill(s), Maintenance, 1 tab(s) Oral BID,PRN:anxiety, Pharmacy: [facility] [Not filled] Discharge instructions discussed with patient. Patient's mental health issues are stable. Patient denies hurting self or others. No acute behavioral intervention needed. Patient verbalized understanding and agreement with plan; all questions were answered to patient satisfaction. This visit entailed 1 5 minutes with patient, reviewing and updating the record, counseling, or coordinating care. Please note that this documentation was created using voice dictation software. Although it has been proofread for accuracy, minor errors may still be present. Please contact me with any questions. MANUEL Palumbo Family Nurse Practitioner [place] Extracted from:Title: [facility] STD screening Author: FERNANDO KEVIN MD Date: 02/03/24 1. E ncounter for screening, unspecified We will go and screen her for various STIs. Aisha ham does not have any pelvic S TI symptoms so we will avoid doing a pelvic exam, aisha ham agreed and consented. She wants to actually do although your blood work Ordered: Chlamydia/GC Amplification [id number] Hepatitis A,B,C Panel HIV-1/O/2 CDD HSV 1/2 PCR [id number] Syphilis Panel Extracted from:Title: [facility] ~ referral allergy, nerve pain Author: VICTOR MANUEL العراقي NP Date: 01/28/24 1. N euralgia Pt will taper off Gabapentin 300 mg 3 tabs at night over the next 3-4 weeks She will also taper off Zoloft to begin starting Cymbalta 30 mg daily F/u virtual in 4 weeks 2. A llergy referral for allergy/immunology for testing Ordered: Referral Request 2.0 - [facility] Orders: DULoxetine(Cymbalta 30 mg oral delayed release capsule), 1 cap(s), Oral, Daily, do not crush or chew, # 30 cap(s), 1 total refill(s), Maintenance, 1 cap(s) Oral Daily,Instr:do not crush or chew, Pharmacy: [facility] [Not filled] Patient's mental health issues are stable. Patient denies hurting self or others. No acute behavioral intervention needed. Patient verbalized understanding and agreement with plan; all questions were answered to patient satisfaction. This visit entailed 2 5 minutes with patient, reviewing and updating the record, counseling, or coordinating care. Please note that this documentation was created using voice dictation software. Although it has been proofread for accuracy, minor errors may still be present. Please contact me with any questions. MANUEL Palumbo Family Nurse Practitioner [place] Extracted from:Title: isomnia/depression/Clinic Note Author: ROXI BRISCOE NP Date: 05/16/23 1. I nsomnia will try ambien CR take her gabapentin at dinner and trial of the ambien cr at bedtime if too drowsy then hold gabapentin patient verbalizes understanding 2. D epression, unspecified Increased zoloft to 100mg; consider counseling when she returns from [facility] Ordered: Comprehensive Metabolic Panel 3. V itamin D deficiency, unspecified check labs Ordered: Vitamin D 25 Hydroxy Level 4. O besity due to excess calories advised to continue exercise limit calories/ fat/ carbs in diet; trial of phentermine has taken in the past Ordered: Thyroid Stimulating Hormone 5. V itamin D deficiency check vitamin d levels low on last check Orders: zolpidem(Ambien CR 6.25 mg oral tablet, extended release), 1 tab(s), Oral, every day at bedtime, PRN sleep, # 30 tab(s), 0 total refill(s), Acute, 06/17/2023, 1 tab(s) Oral every day at bedtime,PRN:sleep, Pharmacy: [facility] [Not filled] celecoxib(CeleBREX 200 mg oral capsule), 1 cap(s), Oral, Daily, # 90 cap(s), 1 total refill(s), Maintenance, 1 cap(s) Oral Daily, Pharmacy: [facility] [Not filled] gabapentin(gabapentin 300 mg oral capsule), 1 cap(s), Oral, TID, # 90 cap(s), 0 total refill(s), Maintenance, 1 cap(s) Oral TID, Pharmacy: [facility] [Not filled] phentermine(phentermine 37.5 mg oral capsule), 1 cap(s), Oral, Daily, # 30 cap(s), 0 total refill(s), Acute, 1 cap(s) Oral Daily, Pharmacy: [facility] [Not filled] sertraline(sertraline 100 mg oral tablet), 1 tab(s), Oral, Daily, X 90 days, # 90 tab(s), 1 total refill(s), Acute, 1 tab(s) Oral Daily,x90 days, Pharmacy: [facility] [Not filled] Extracted from:Title: [facility]-R knee pain Author: MARTHA TAFOYA NP Date: 12/07/22 1. P ain in right knee On and off R knee cap p ain x 1 month- No pain on today's visit- pain is intermittent with movement, with grinding and pressure feeling. O TC N SAIDs, o ffers relief but pain has not abated completely Knee exam- Non tender to p alpation, f ull range of motion, no warmth, swelling, deformity X ray, pain control, cold/warm compress, Knee support Open to starting PT f/u if no improvement with PT Ordered: diclofenac topical(diclofenac 1% topical gel), See instructions, Apply 2 grams (upper extremities) or 4 grams (lower extremities) to affected area topically four times daily as needed for pain. Max total body dose of 32 grams per day, # 100 g, 0 total refill(s), Maintenance, Apply 2 grams (upper e... ibuprofen(ibuprofen 800 mg oral tablet), 1 tab(s), Oral, TID, PRN pain, with food or milk Do not take together with Celebrex, alleve, or any other OTC nsaids, # 30 tab(s), 0 total refill(s), Maintenance, 1 tab(s) Oral TID,PRN:pain,Instr:with food or milk; Do not take together with Celebre... XR Knee Complete 4+ Views Right Referral Request 2.0 Future Scheduled TestsLaboratoryHepatitis A,B,C Panel 02/03/24 12/26/2024 Unknown Organization Functional Status Combined list of recent functional and cognitive assessments recorded at [facility] Functional [place] Measurement (FIM) Scale: 1 = Total Assistance (Subject = 0% +), 2 = Maximal Assistance (Subject = 25% +), 3 = Moderate Assistance (Subject = 50% +), 4 = Minimal Assistance (Subject = 75% +), 5 = Supervision, 6 = Modified [place] (Device), 7 = Complete [place] (Timely, Safely). Assessment Date/Time Source Assessment Type Assessment Skill Assessment Score Assessment Details No data available for this section
--- OUTSIDE RECORDS SUMMARY | 2024-12-26 10:07 | XMS_ITS | Clinical Summary ---
Author Organization [facility] Address [address] [address] Care Team Providers Care Audio Visual Secretary Name Role Phone None, None Primary Care Provider Unavailabl e Allergies Active Allergy Reactions Criticality Noted Date Comments Nickel Rash Low 12/21/2022 Sulfa Antibiotics Hives 12/21/2022 Hives, fever, vomiting Social History Tobacco Use Types Packs/Day Years Used Date Smoking Tobacco: Never Assessed Comments Unknown Sex and Gender Information Value Date Recorded Sex Assigned at Not on file Legal Sex Female 5:22 PM EST Gender Identity Not on file Sexual Orientation Not on file Plan of Treatment Health Maintenance Due Date Last Done Comments Depression Screen 2001 Varicella vaccine (1 of 2 - 13+ 2-dose series) 2002 HIV screen 01/28/2004 Hepatitis C screen 2007 DTaP/Tdap/Td vaccine (1 - Tdap) 01/28/2008 Hepatitis B vaccine (1 of 3 - 19+ 3-dose series) 01/28/2008 Pap smear 2010 Cervical cancer screen 2019 HPV (without or with Pap) 2019 Flu vaccine (#1) 05/07/2024 COVID-19 Vaccine (2023-2 5 season) 2024 08/11/2021, 01/24/2021, 12/27/2020 HPV vaccine Aged Out No longer eligi ble based on patient's age to complete this topic Hepatitis A vaccine Aged Out No longe r eligible based on patient's age to complete this topic Hib vaccine Aged Out No longer eligi ble based on patient's age to complete this topic Meningococcal (ACWY) vaccine Aged Out No longer eligible based on patient's age to complete this topic Meningococcal B vaccine Aged Out No l onger eligible based on patient's age to complete this topic Pneumococcal 0-49 years Vaccine Aged Out No longer eligible b ased on patient's age to complete this topic Polio vaccine Aged Out No longer elig ible based on patient's age to complete this topic Care Teams Audio Visual Secretary Relationship Specialty Start Date End Date None, None PCP - General 12/21/22
--- NOTE | 2024-12-26 10:09 | ED_ITS ---
HPI - Skin/Abscess/Foreign Bdy General Chief complaint: Skin/Abscess/Foreign Body Stated complaint: LT Hip Infection Time Seen by Provider: 12/26/24 10:25 Source: patient Mode of arrival: ambulatory Limitations: no limitations History of Present Illness HPI narrative: Vivian is a 34-year-old female patient presenting to the clinic today with complaints of a skin infection to her left anterior hip. She reports she 1st noticed it on Saturday. Denies any fevers, chills, body aches. States that the area is red, warm, and very tender when it is touched. Pain is 10/10 when touch and about a 4/10 when just sitting. It is draining some greenish yellow pus. States she has been getting these more frequently. History of MRSA and group B strep infections. Allergies to Bactrim. States her gets these infe ctions to and has had to go to the hospital to have them drained. Related Data Home Medications ?Medication ?Instructions ?Recorded ?Confirmed ?Last Taken ?Type celecoxib 200 mg capsule 200 mg PO DAILY 12/31/22 12/31/22 Unknown History gabapentin 300 mg capsule 200 mg PO DAILY 12/31/22 12/31/22 Unknown History norgestimate 0.18 mg/0.215 mg/0.25 1 tablet PO DAILY 12/31/22 12/31/22 Unknown History mg-ethinyl estradiol 25 mcg tablet sertraline 50 mg tablet 50 mg PO DAILY 12/31/22 12/31/22 Unknown History Allergies Allergy/AdvReac Type Severity Reaction Status Date / Time nickel Allergy Mild Rash Verified 12/26/24 10:20 Sulfa (Sulfonamide Allergy Mild HIVES Verified 12/26/24 10:20 Antibiotics) sulfanilamide Allergy Mild Hives Verified 12/26/24 10:20 Review of Systems Review of Systems: Pertinent positives per HPI. Patient denies any fever, chills, rash, headache, visual changes, dizziness, cough, runny nose, sore throat, shortness of breath, chest pain, palpitations, nausea, vomiting, diarrhea, constipation, abdominal pain, or any urinary issues. [facility] Family History Family History Father Hypertension Family history of diabetes mellitus in first degree relative Grandparent Diabetes mellitus Social History Social History Smoking status: Never smoker Alcohol intake: never Comments At the time of my signature, I reviewed and agree with the nursing past medical, surgical, social, and family history. There is no relevant family history pertinent to the patient complaint. Exam Narrative: General: Well-developed, well nourished, in no apparent distress Head: Normocephalic, atraumatic. Cardio: Regular rate and rhythm, s1 and s2 normal, no murmur appreciated. Resp: Clear to auscultation bilaterally, no rhonchi, rales, wheezing or rubs. Integumentary: [place], warm, and dry, 3 and half by 3 cm mildly fluctuant abscess to the left anterior hip/lower abdomen. Mild erythema and localized redness. Able to express purulent discharge-greenish brown and wound culture was obtained Course Course Emergency Course: Portions of this record may have been created with voice recognition software. Level of Care: Express Care Visit Vital Signs Vital signs: Vital Signs Temperature 36.2 C L 12/26/24 10:17 Pulse Rate 79 12/26/24 10:17 Respiratory Rate 18 12/26/24 10:17 Blood Pressure 106/66 12/26/24 10:17 Pulse Oximetry 99 12/26/24 10:17 Oxygen Delivery Room Air 12/26/24 10:17 Temperature 36.2 C L 12/26/24 10:17 Pulse Rate 79 12/26/24 10:17 Respiratory Rate 18 12/26/24 10:17 Blood Pressure 106/66 12/26/24 10:17 Pulse Oximetry 99 12/26/24 10:17 Oxygen Delivery Room Air 12/26/24 10:17 Vital signs reviewed MDM - Skin/Abscess/Foreign Bdy MDM Narrative Medical decision making narrative: At the time of visit patient is resting comfortably on the exam table. Patient appears to be nontoxic. Labs: Wound culture of abscess drainage was obtained and sent to the lab. Plan: I suspect patient has a subcutaneous abscess to left anterior hip/lower abdomen. Prescription for clindamycin and mupirocin cream was sent to the [facility]. Patient has history of group B strep and MRSA infections. Of allergies to Bactrim. Wound culture was sent to the lab. Supportive measures were discussed with the patient and they voiced understanding discharge instructions and agrees to treatment plan. Return precautions reviewed Differential Diagnosis Differential diagnosis: Likely abscess of skin or subcutaneous tissue, viral exanthem, dermatophytosis, urticaria, herpes zoster, allergic reaction to drug, cellulitis, eczema, insect bites, impetigo and contact dermatitis Discharge Plan Discharge Clinical Impression: Abscess of skin or subcutaneous tissue Qualifiers: Site of cutaneous abscess: trunk Site of cutaneous abscess of trunk: abdominal wall Qualified Code(s): L02.211 - Cutaneous abscess of abdominal wall Patient Disposition: Home, Self-Care Condition: Stable Instructions: Antibiotic Form, Abscess (ED) Additional Instructions: Drainage was expressed from the abscess today and wound culture was obtained and sent to the lab Take clindamycin as prescribed Apply mupirocin cream to the affected area twice daily as prescribed May take Tylenol/Motrin as needed for pain or fever Keep area clean and dry May apply warm moist compresses to the affected area to help facilitate drainage Keep covered if draining Follow-up with your primary care doctor in 2-3 days for wound check. Watch for signs and symptoms of worsening infection-fever, increase redness, streaking, swelling, purulent discharge, or increase in pain. Patient Language: Welsh Prescriptions: New clindamycin HCl 300 mg capsule 300 mg PO Q8H 10 Days Qty: 30 0RF mupirocin [Centany] 2 % ointment 1 applic topical BID 7 Days Qty: 22 0RF No Action celecoxib 200 mg capsule 200 mg PO DAILY gabapentin 300 mg capsule 200 mg PO DAILY sertraline 50 mg tablet 50 mg PO DAILY norgestimate-ethinyl estradiol 0.18/0.215/0.25 mg-25 mcg tablet 1 tablet PO DAILY azithromycin 250 mg tablet See Rx Instructions .ROUTE .COMPLEX Qty: 6 0RF Rx Instructions: For 250 mg dose pack: take 500 mg today (day 1), then 250 mg for 4 days (days 2-5) benzonatate 200 mg capsule 200 mg PO TID PRN (Reason: cough) Qty: 20 0RF Follow-up/Referrals: Jonny Moss MD [Primary Care Provider] - Time of Disposition: 10:33 Quality NIHSS Nursing Documentation ED NIHSS nursing documentation: reviewed/agree
--- OUTSIDE RECORDS SUMMARY | 2024-12-26 10:10 | XMS_ITS | Continuity of Care Document ---
Author Name [facility] Organization [facility] Care Team Providers Care Cause Analyst Name Role Phone [facility] Unavailable Unavailable Problems Combined list of problems from Department [facility] facilities. It does not include entries that were removed or entered in error. Problem Status Onset Date Problem Type Date of Resolution Comments Source Repeated prescription Active 5 Diagnosis [facility] [place] Repeated prescription Active 4 Diagnosis 012-[facility] [place] Repeated prescription Active 4 Diagnosis [facility] [place] Anxiety Active Condition [address] [place] [address] [place] Vitamin D deficiency Active Condition [address] [place] [address] [place] Follow-up Active Condition [address] [place] [address] [place] Morbid obesity Active Condition Unknown Organization Pain in right knee Active Condition [address] [place] [address] [place] Repeated prescription Active Condition [address] [place] [address] [place] Medications Combined list of outpatient medications from [facility] and [facility] facilities.Medications provided include 1) outpatient medications from [...] Acute, 06/16/23 11:00:00 PM CDT, Pharmacy : [facility] Oral (given by mouth) Complet ed 06/17/2023 3 2022 30.0 0121C[facility] Ambien CR 6.25 mg oral tablet, extended release 1 tab(s), Oral, every day at bedtime, PRN sleep, # 30 tab(s), 3 total refill(s ), Acute, 11/10/24 11:00:00 PM 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, Pharmacy : [facility] Oral (given by mouth) Complet ed 11/11/2024 4 2024 30.0 0121C-A [facility] d-Eusti s Ambien CR 6.25 mg oral tablet, extended release 1 tab(s), Oral, every day at bedtime, PRN sleep, # 30 tab(s), 0 total refill(s ), Acute, 08/23/23 11:00:00 PM 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, Pharmacy : [facility] Oral (given by mouth) Complet ed 08/24/2023 3 2022 30.0 0121C-A [facility] d-[place] CeleBREX 200 mg oral capsule 1 cap(s), Oral, Daily, # 90 cap(s), 1 total refill(s ), Maintena oke, Pharmacy : [facility] Oral (given by mouth) Ordered 5 2023 90.0 0121C-A [facility] d-[place]usti s CeleBREX 200 mg oral capsule 1 cap(s), Oral, Daily, # 90 cap(s), 1 total refill(s ), Maintena oke, Pharmacy : [facility] Oral (given by mouth) Discont inued 07/24/2024 4 2023 90.0 0121C-A [facility] d-[place]usti s CeleBREX 200 mg oral capsule 1 cap(s), Oral, Daily, # 90 cap(s), 1 total refill(s ), Maintena oke, Pharmacy : [facility] Oral (given by mouth) Discont inued 01/16/2024 3 2023 90.0 0121C-A [facility] d-Eusti s celecoxib 200 mg capsule See dose instruct ions in comments , # 90 EA, 0 total refill(s ), Acute Discont inued 12/07/2022 3 2022 90.0 Ambulat ory Pharmac y celecoxib 200 mg oral capsule 90 cap(s), 0 total refill(s ), Soft Stop Discont inued 12/07/20222022 0[facility] clomiPHENE 50 mg oral tablet clomiPHE NE 50 mg oral tablet Start Date: 11/10/20 Stop Date: 12/07/22 Status: Disconti braulio Repeat number: 1 Discont inued 12/07/20222022 No Facilit y Access Cymbalta 30 mg oral delayed release capsule 1 cap(s), Oral, Daily, do not crush or chew, # 30 cap(s), 1 total refill(s ), [facility], Pharmacy : [facility] Oral (given by mouth) Discont inued 02/27/2024 4 2023 30.0 0121C-A [facility] s diclofenac 1% topical gel See instruct ions, Apply 2 grams (upper extremit ies) or 4 grams (lower extremit ies) to affected area topicall y four times daily as needed for pain. Max total body dose of 32 grams per day, # 100 g, 0 total refill(s ), [facility], Pharmacy : [facility] Ordered 3 2022 100.0 0121C[facility]A [facility] ergocalcife rol 1.25 mg (50,000 intl units) oral capsule TAKE ONE CAPSULE BY MOUTH EVERY WEEK FOR VITAMIN- D DEFICIEN CY, # 12 EA, 1 total refill(s ), Acute Complet ed 09/04/2023 2 2022 12.0 Ambulat ory Pharmac y ergocalcife rol 1.25 mg (50,000 intl units) oral capsule 12 cap(s), 0 total refill(s ), Soft Stop Discont inued 12/07/20222022 0121C-A [facility] ergocalcife rol 1.25 mg (50,000 intl [...] refill(s ), Hard Stop, 08/13/23 2:27:39 PM 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, Pharmacy : [facility] Oral (given by mouth) Complet ed 08/13/2023 3 2022 90.0 0[facility]A [facility] [facility] gabapentin 300 mg oral capsule 1 cap(s), Oral, TID, # 90 cap(s), 0 total refill(s ), Hard Stop, 09/23/24 11:03:35 AM 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, Pharmacy : [facility] Oral (given by mouth) Complet ed 09/23/2024 4 2023 90.0 0121C-A [facility] gabapentin 300 mg oral capsule 1 cap(s), Oral, TID, # 90 cap(s), 2 total refill(s ), Maintena oke, Pharmacy : [id number] Oral (given by mouth) Ordered 2024 90.0 0121C-A [facility] gabapentin 300 mg oral capsule 1 cap(s), Oral, TID, # 90 cap(s), 0 total refill(s ), Maintena oke, Pharmacy : [facility] Oral (given by mouth) Discont inued 01/16/20242023 90.0 0121C-A [facility] [facility] gabapentin 300 mg oral capsule 1 cap(s), Oral, TID, # 90 cap(s), 0 total refill(s ), Maintena oke, Pharmacy : [id number] Oral (given by mouth) Discont inued 07/24/20242023 90.0 0121C-A [facility] [facility] gabapentin 300 mg oral capsule 90 cap(s), 0 total refill(s ), Soft Stop Discont inued 12/07/20222022 0121C-A [facility] [facility] gabapentin 300 mg oral capsule 1 cap(s), Oral, TID, # 90 cap(s), 0 total refill(s ), Maintena nce, Pharmacy : [facility] Oral (given by mouth) Discont inued 10/20/2024 4 2024 90.0 [facility] gabapentin 300 mg oral capsule 1 cap(s), Oral, TID, # 90 cap(s), 0 total refill(s ), Maintena nce, Pharmacy : [facility] Oral (given by mouth) Discont inued 02/03/2024 4 2023 90.0 0121C-A [facility] d-[place] s gabapentin 400 mg oral capsule 1 cap(s), Oral, Daily, at bedtime, # 90 cap(s), 3 total refill(s ), Maintena nce Oral (given by mouth) Discont inued 02/27/20242023 90.0 [facility] gabapentin 600 mg oral tablet 1 tab(s), Oral, every day at bedtime, # 90 tab(s), 1 total refill(s ), Maintena oke, Pharmacy : [facility] Oral (given by mouth) Discont inued 05/25/2024 4 2023 90.0 [facility] gabapentin 600 mg oral tablet 1 tab(s), Oral, every day at bedtime, # 30 tab(s), 0 total refill(s ), Maintena oke, Pharmacy : [id number] Oral (given by mouth) Ordered 2023 30.0 0[facility] gabapentin 600 mg oral tablet 1 tab(s), Oral, every day at bedtime, # 30 tab(s), 0 total refill(s ), Maintena oke, Pharmacy : [facility] #[id number] Oral (given by mouth) Discont inued 05/27/20242023 30.0 0121C-A [facility] s glyBURIDE 2.5 mg oral tablet glyBURID [...] # 40 tab(s), 1 total refill(s ), [facility], Pharmacy : [facility] Oral (given by mouth) Ordered 4 2023 40.0 0121C-A [facility] s ibuprofen 800 mg oral tablet 1 tab(s), Oral, TID, PRN pain, with food or milk Do not take together with Celebrex , alleve, or any other OTC nsaids, # 30 tab(s), 0 total refill(s ), [facility], Pharmacy : [facility] Oral (given by mouth) Discont inued 05/16/2023 2022 30.0 0121C-A [facility] s MODERNA COVID-19 VACCINE (EUA) (COVID-19 vaccine, mRNA, [id number], LNP-S (Moderna)/P F), 100MCG/0.5, MODERNA COVID-19 VACCINE (EUA) (COVID-1 9 vaccine, mRNA, [id number] 4, LNP-S (Moderna )/PF), 100MCG/0 .5, Start [...] ), Soft Stop Discont inued 12/07/20222022 0121C-A [facility] s norethindro ne 0.35 mg oral tablet [...] ), Soft Stop Discont inued 12/07/20222022 [facility] ondansetron 4 mg oral tablet, disintegrat [...] 0 total refill(s ), Acute, Pharmacy : [facility] Oral (given by mouth) Complet ed 06/16/20232022 30.0 0121C-A [facility] hailey-Sea s phentermine 37.5 mg oral tablet 1 tab(s), Oral, Daily, # 30 tab(s), 0 total refill(s ), Acute, Pharmacy : [facility] Oral (given by mouth) Discont inued 01/28/2024 3 2023 30.0 0121C-A [facility] d-Eusti s Multivitami ns with Folic Acid 1 mg oral tablet Multivit amins with Folic Acid 1 mg oral tablet Start Date: 02/14/21 Stop Date: 12/07/22 Status: Jarrodi braulio Repeat number: 1 Discont inued 12/07/20222022 No Facilit y Access sertraline 100 mg oral tablet 1 tab(s), Oral, Daily, X 90 days, # 90 tab(s), 1 total refill(s ), Acute, Pharmacy : [facility] Oral (given by mouth) Complet ed 11/11/2023 3 2023 90.0 0121C-A [facility] d-[place]usti s sertraline 100 mg oral tablet 90 tab(s), 0 total refill(s ), Soft Stop Discont inued 12/07/20222022 0121C-A [facility] d-[place]usti s sertraline 100 mg oral tablet [...] by mouth) Discont inued 02/19/20242023 30.0 0121C-A [facility] d-[place]usti s sertraline 50 mg oral tablet sertrali ne 50 mg oral tablet Start Date: 07/07/21 Stop Date: 12/07/22 Status: Disconti nued Repeat number: 1 Discont inued 12/07/20222022 No Facilit y Access Zoloft 100 mg oral tablet 1 tab(s), Oral, Daily, # 90 tab(s), 1 total refill(s ), [facility], Pharmacy : [facility] Oral (given by mouth) Discont inued 02/03/2024 4 2023 90.0 0121C-A [facility] Zoloft 100 mg oral tablet 1 tab(s), Oral, Daily, # 30 tab(s), 1 total refill(s ), [facility], Pharmacy : [facility] Oral (given by mouth) Complet ed 09/23/2024 4 2023 30.0 0121C-A [facility] Zoloft 100 mg oral tablet 1 tab(s), Oral, Daily, # 90 tab(s), 1 total refill(s ), [facility], Pharmacy : [facility] Oral (given by mouth) Discont inued 05/25/2024 4 2023 90.0 0121C-A [facility] Zoloft 100 mg oral tablet 1 tab(s), Oral, Daily, # 30 tab(s), 0 total refill(s ), [facility], Pharmacy : [facility] #[id number] Oral (given by mouth) Discont inued 06/29/20242023 30.0 0121C-A [facility] Zoloft 100 mg oral tablet 1 tab(s), Oral, Daily, # 30 tab(s), 1 total refill(s ), [facility], Pharmacy : [facility] Oral (given by mouth) Ordered 5 2023 30.0 0121C-A [facility] [facility] Zoloft 100 mg oral tablet 1 tab(s), Oral, Daily, # 30 tab(s), 0 total refill(s ), [facility], Pharmacy : [id number] Oral (given [...] Site Reaction Lot Number CVX Code 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 Order Name Results Value Reference Range Date Interpretation Specimen Comments Source Infectio us Disease Source of Test.LC STD Visit (02/14/24 1:14 PM) 02/[address] [place] [address]- [place] Infect us Disease HIV-1/2 AG/AB 4G CDD LC NEGATIVE 02/13 Result Comment: Performed At: 1 [facility] [address] [place] [address] [address] [place] [address] ALBAN JERI PHD Ph:[phone] [address] [place] [address] [place] Chemistr y Alk Phos 115 U/L 46 - 116 02/[address] [place] [address] [facility] [place] Chemistr y A/G Ratio 0.9 1.0 - 1.8 02/[address] [place] [address] [facility] [place] Chemistr y Albumin 3.2 mg/dL 3.4 - 5.0 02/[address] [place] [address] [facility] [place] Chemistr y ALT 32 U/L 14 - 59 02/[address] [place], [place] [address]onald- [place] Chemistr y Bilirubin Total 0.4 mg/dL 0.2 - 1.0 02/[address] [place], [place] [address]onald- [place] Chemistr y Protein Total 6.8 g/dL 6.4 - 8.2 02/[address] [place], [place] [address]onald- [place] Chemistr y AST 17 U/L 15 - 37 02/[address] [place] [address]- [place] Chemistr y Bilirubin Direct 0.10 mg/dL 0.00 - 0.20 02/[address] [place] [address]- [place] Immunolo gy/Serol ogy Hep A Ab IgM [...] in pediatric populations . Testing performed by [employer] ce. 5600A-[employer] FSAM EPILAB Immunolo gy/Serol ogy Hep A [...] or recent infection. Testing performed by [employer]chem [facility] ce. 5600A-[place] FSAM EPILAB Immunolo gy/Serol ogy Hep B Core Ab Nonreact alexandro *NA* (02/03/24 10:08 AM) 02/[address] [place] [address] Immunolo gy/Serol ogy Hep B Surface Ab [...] the use of additional diagnostic information . [address] [place] [address] Immunolo gy/Serol ogy Hep B Surface Ag [...] . Supplementa l tests may be required. [address] [place] [address] Immunolo gy/Serol ogy Hep C Ab Negative 3 (02/03/24 10:08 AM) 02/02 N Interpretiv e Data: NEGATIVE - Antibodies to HCV were not detected; does not exclude the possibility of exposure to HCV. PRESUMPTIVE POSITIVE - Presumptive evidence of antibodies to HCV. Follow CDC recommendat ions for supplementa l testing. Refer to updated guidance Testing HCV Infection: An Update of Guidance for Clinicians and Laboratoria ns for additional information and recommended HCV testing algorithm (Centers for Disease Control and Prevention, MMWR Early Release / Vol. 62 / February 10, 2013). Notifiable result/cond ition for Local/[facility] department, notify your local [facility] public health immediately for proper notificatio n. Testing performed by [employer]. [employer] Immunolo gy/Serol ogy Treponema pallidum Ab Non-Reac [...] pediatric populations . Notifiable result/cond ition for Local/[facility] Public Health () department, notify your local [facility] immediately for proper notificatio n. 5600A-[place] [employer] Infectio us Disease Source of Test.LC STD Visit (02/03/24 10:07 AM) 02/[address] [place] [address]- [place] Infectio us Disease HIV-1/2 AG/AB 4G CDD LC TEST NOT PERFORME D 02/02 Result Comment: SPECIMEN NOT SPUN DOWN [address] [place] [address]- [place] Molecula r Infectio us Disease HSV-2 DNA LC Negative 02/02 Result Comment: This test was developed and its performance characteris tics determined by [facility]. It has not been cleared or approved by the U.S. Food and Drug Administrat ion. The FDA has determined that such clearance or approval is not necessary. This test is used for clinical purposes. It should not be regarded as investigati onal or research. Performed At: [address] [id number] Shimon Borja MD Ph:[phone] [address] [place] [address]- [place] Molecula r Infectio us Disease HSV-1 DNA LC Negative 02/[address] [place] [address]- [place] Molecula r Infectio us Disease Neisseria gonorrhoea e ALEXANDRE LC Negative 02/02 Result Comment: Performed At: [address] [id number] Shimon Borja MD Ph:[phone] [address] [place] [address]- [place] Molecula r Infectio us Disease Chlamydia trach ALEXANDRE Negative 02/[address] [place] [address] Chemistr y TSH 1.4017 0.3500 - 4.9400 05/[address] [place], [place] [address]out h Chemistr y CO2 26.0 meq/L 22.0 - 29.0 05/[address] [place] [address] Chemistr y A/G Ratio 1.0 1.0 - 1.8 05/[address] [place] [address] Chemistr y Creatinine Level 0.80 mg/dL 0.50 - 1.00 05/[address] [place] [address] h Chemistr y BUN 12.6 mg/dL 7.0 - 18.7 05/[address] [place] [address] Chemistr y AGAP 7 05/[address] [place] [address] Chemistr y Sodium 141 mmol/L 136 - 145 05/[address] [place] [address] Chemistr y Protein Total 7.3 g/dL 6.4 - 8.3 05/27 N Interpretiv e Data: Plasma values are generally 0.3 to 0.5 g/dL (3 to 5 g/L) higher than serum values due to the presence of fibrinogen. [address] [place] [address] Chemistr y Calcium 8.8 mg/dL 8.4 - 10.2 05/[address] [place] [address] Chemistr y AST 17 U/L 5 - 34 05/[address] [place] [address] Chemistr y ALT 18 U/L 5 - 55 05/[address] [place] [address] Chemistr y Glucose Lvl 94 mg/dL 70 - 99 05/[address] [place] [address] Chemistr y Potassium Lvl 4.1 mmol/L 3.4 - 4.4 05/[address] [place] [address] Chemistr y Alk Phos 108 U/L 40 - 150 05/[address] [place] [address] Chemistr y Bilirubin Total 0.4 mg/dL 0.2 [...] the Total Bilirubin and Direct Bilirubin assays. [address] [place] [address] Chemistr y BUN/Creat Ratio 15.80 ratio 05/[address] [place] [address] Chemistr y Chloride 108 mmol/L 98 - 107 05/[address] [place] [address] Chemistr y Albumin 3.7 g/dL 3.5 - 5.2 05/[address] [place] [address] Chemistr y Vitamin D 25 OH 26.5 ng/mL 30.0 - 100.0 05/27 L Interpretiv e Data: Deficient/I nsufficient : <30 ng/mL Sufficient: 30 ng/mL - 100 ng/mL Vitamin D Toxicity >100 ng/mL [address] [place] [address] Chemistr y eGFR CKD EPI 99 mL/min [...] G4 Severe decrease <15 G5 Kidney failure [facility] Vital Signs Combined list of inpatient and outpatient Vital Signs from [facility], ranging from 12 months to all on record, depending upon the facility. Vital Sign Value Date Comments Source Respiratory Rate 18 br/min 12/07/2022 18:28:[address] [place] [address] [facility] Systolic Blood Pressure 110 mm[Hg] 12/07/2022 18:28:[address] [place] [address] [facility] Diastolic Blood Pressure 73 mm[Hg] 12/07/2022 18:28:[address] [place], [place] [address]onald-[place] Peripheral Pulse Rate 75 bpm 12/07/2022 18:28:00 [facility] [place] Blood Pressure Manual Automatic 12/07/2022 18:28:00 [facility] [place] BP Site Right arm 12/07/2022 18:28:00 0[facility] [place] Mean Arterial Pressure, Calc 85 mm[Hg] 12/07/2022 18:28:00 [facility] [place] Temperature Oral 36.6 Bridgett 12/07/2022 18:28:00 [facility] [place] Temperature Oral 36.8 Bridgett 02/03/2024 13:12:00 [facility] [place] Peripheral Pulse Rate 88 bpm 02/03/2024 13:12:00 [facility] [place] Blood Pressure Manual Automatic 02/03/2024 13:12:00 [facility] [place] Mean Arterial Pressure, Calc 105 mm[Hg] 02/03/2024 13:12:00 [facility] [place] BP Site Left arm 02/03/2024 13:12:00 0[facility] [place] Systolic Blood Pressure 135 mm[Hg] 02/03/2024 13:12:00 [facility] [place] Diastolic Blood Pressure 90 mm[Hg] 02/03/2024 13:12:00 [facility] [place] Respiratory Rate 18 br/min 02/03/2024 13:12:00 0121C-C [place] Mean Arterial Pressure, Calc 91 mm[Hg] 01/28/2024 11:50:00 [facility] [place] Blood Pressure Manual Automatic 01/28/2024 11:50:00 [facility] [place] Peripheral Pulse Rate 74 bpm 01/28/2024 11:50:00 [facility] [place] BP Site Left arm 01/28/2024 11:50:00 0[facility] [place] Temperature Oral 36.9 Bridgett 01/28/2024 11:50:00 [facility] [place] Respiratory Rate 16 br/min 01/28/2024 11:50:00 [facility] [place] Systolic Blood Pressure 114 mm[Hg] 01/28/2024 11:50:00 [facility] [place] Diastolic Blood Pressure 80 mm[Hg] 01/28/2024 11:50:00 [facility] [place] Encounters Combined list of: 1) Encounters from [facility] facilities going backup to the last 18 months, not all [place] inpatient encounters are included; 2) Encounters from the [facility] facilities going backup to 280 months. Location Location Details Encounter Type Encounter Number Reason For Visit Attending Provider ADM Date DC Date Status [facility] Between Visit [id number] 07/24 Discharge Disposition: Home or Self Care 012[facility] [place] [id number] Discharge Disposition: Home or Self Care 0121C-A [facility] [facility] Mag[facility]- [place] [facility] [id number] [facility]ri ption 09/23 Discharge Disposition: Home or Self Care 0121C-A [facility] [facility]- [place] [facility] [id number] [facility]ri ption 09/23 Discharge Disposition: Home or Self Care 012Reuben-A AIMEE Khan d-[place]usti s [address] [place] [address] Mag[facility]- [place] [id number] [facility] prescri ption 10/20 Discharge Disposition: Home or Self Care 0121C-A [facility] Bill d-[place] s Procedures Combined list of: 1) Procedures from [facility] facilities going back up to thelast 18 months, not all [place] non-surgical procedures are included; 2) All procedures from the [facility] facilities. Procedure Procedure Type Code Date Perfomer Comments Sourc e No data available for this section Ambulatory P harmacy Social History Combined list of available smoking, tobacco, and other social history from [facility] Defense and [facility] facilities. Social History Type Response Date Comment [facility] e Sex Representation Female 01/29/2022 Unknow n [...] Source Assessment and Plan Extracted from:Title : 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 3. F ollow-up lab results given to patient, advised HIV negative and has immunity to Hep A- there is no active infection Orders: gabapentin(gabapentin 600 mg oral tablet), 1 tab(s), Oral, every day at bedtime, # 90 tab(s), 1 total refill(s), Maintenance, 1 tab(s) Oral every day at bedtime, Pharmacy: [facility] [Not filled] hydrOXYzine(hydrOXYzine hydrochloride 25 mg oral tablet), 1 tab(s), Oral, BID, PRN anxiety, # 40 tab(s), 1 total refill(s), Maintenance, 1 tab(s) Oral BID,PRN:anxiety, Pharmacy: [facility] [Not filled] Discharge instructions discussed with [...] any questions. MANUEL Palumbo Family Nurse Practitioner [place] Extracted from:Title: [facility] STD screening Author: FERNANDO KEIVN MD Date: 02/03/24 1. E ncounter for screening, unspecified We will go and screen her for various STIs. Aisha ham does not have any pelvic S TI symptoms so we will avoid doing a pelvic exam, aisha ham agreed and consented. She wants to actually do although your blood work Ordered: Chlamydia/GC Amplification [id number] Hepatitis A,B,C Panel HIV-1/O/2 CDD HSV 1/2 PCR [id number] Syphilis Panel Extracted from:Title: [facility] ~ referral allergy, nerve pain Author: VICTOR [...] Oral Daily,Instr:do not crush or chew, Pharmacy: [facility] [Not filled] Patient's mental health issues [...] any questions. MANUEL Palumbo Family Nurse Practitioner [place] Extracted from:Title: isomnia/depression/Clinic Note Author: ROXI [...] tab(s) Oral every day at bedtime,PRN:sleep, Pharmacy: [facility] [Not filled] celecoxib(CeleBREX 200 mg oral capsule), 1 cap(s), Oral, Daily, # 90 cap(s), 1 total refill(s), Maintenance, 1 cap(s) Oral Daily, Pharmacy: [facility] [Not filled] gabapentin(gabapentin 300 mg oral capsule), 1 cap(s), Oral, TID, # 90 cap(s), 0 total refill(s), Maintenance, 1 cap(s) Oral TID, Pharmacy: [facility] [Not filled] phentermine(phentermine 37.5 mg oral capsule), 1 cap(s), Oral, Daily, # 30 cap(s), 0 total refill(s), Acute, 1 cap(s) Oral Daily, Pharmacy: [facility] [Not filled] sertraline(sertraline 100 mg oral tablet), 1 tab(s), Oral, Daily, X 90 days, # 90 tab(s), 1 total refill(s), Acute, 1 tab(s) Oral Daily,x90 days, Pharmacy: [facility] [Not filled] Extracted from:Title: [facility] knee pain Author: MARTHA TAFOYA NP Date: [...] Future Scheduled TestsLaboratoryHepatitis A,B,C Panel 02/03/24 12/26/[address] [place] [address] Cuong Assessment and Plan Extracted from:Title : [facility] ~ lab review, med refills, anxiety Author: [...] been informed of drowsiness w/ this medication [facility] prescriptions and no doctor shopping found. 3. F ollow-up lab results given to patient, advised HIV negative and has immunity to Hep A- there is no active infection Orders: gabapentin(gabapentin 600 mg oral tablet), 1 tab(s), Oral, every day at bedtime, # 90 tab(s), 1 total refill(s), Maintenance, 1 tab(s) Oral every day at bedtime, Pharmacy: [facility] [Not filled] hydrOXYzine(hydrOXYzine hydrochloride 25 mg oral tablet), 1 tab(s), Oral, BID, PRN anxiety, # 40 tab(s), 1 total refill(s), Maintenance, 1 tab(s) Oral BID,PRN:anxiety, Pharmacy: [facility] [Not filled] Discharge instructions discussed with [...] any questions. MANUEL Palumbo Family Nurse Practitioner [place] Extracted from:Title: [facility] STD screening Author: FERNANDO KEVIN MD Date: 02/03/24 1. E ncounter for screening, unspecified We will go and screen her for various STIs. Aisha ham does not have any pelvic S TI symptoms so we will avoid doing a pelvic exam, aisha ham agreed and consented. She wants to actually do although your blood work Ordered: Chlamydia/GC Amplification [id number] Hepatitis A,B,C Panel HIV-1/O/2 CDD HSV 1/2 PCR [id number] Syphilis Panel Extracted from:Title: [facility] ~ referral allergy, nerve pain Author: VICTOR MANUEL العراقي NP Date: 01/28/24 1. N euralgia Pt will taper off Gabapentin 300 mg 3 tabs at night over the next 3-4 weeks She will also taper off Zoloft to begin starting Cymbalta 30 mg daily F/u virtual in 4 weeks 2. A llergy referral for allergy/immunology for testing Ordered: Referral Request 2.0 - [facility] Orders: DULoxetine(Cymbalta 30 mg oral delayed release capsule), 1 cap(s), Oral, Daily, do not crush or chew, # 30 cap(s), 1 total refill(s), Maintenance, 1 cap(s) Oral Daily,Instr:do not crush or chew, Pharmacy: [facility] [Not filled] Patient's mental health issues [...] any questions. MANUEL Palumbo Family Nurse Practitioner [place] Extracted from:Title: isomnia/depression/Clinic Note Author: ROXI [...] tab(s) Oral every day at bedtime,PRN:sleep, Pharmacy: [facility] [Not filled] celecoxib(CeleBREX 200 mg oral capsule), 1 cap(s), Oral, Daily, # 90 cap(s), 1 total refill(s), Maintenance, 1 cap(s) Oral Daily, Pharmacy: [facility] [Not filled] gabapentin(gabapentin 300 mg oral capsule), 1 cap(s), Oral, TID, # 90 cap(s), 0 total refill(s), Maintenance, 1 cap(s) Oral TID, Pharmacy: [facility] [Not filled] phentermine(phentermine 37.5 mg oral capsule), 1 cap(s), Oral, Daily, # 30 cap(s), 0 total refill(s), Acute, 1 cap(s) Oral Daily, Pharmacy: [facility] [Not filled] sertraline(sertraline 100 mg oral tablet), 1 tab(s), Oral, Daily, X 90 days, # 90 tab(s), 1 total refill(s), Acute, 1 tab(s) Oral Daily,x90 days, Pharmacy: [facility] [Not filled] Extracted from:Title: [facility] knee [...] [employer] and [employer] ([place] Functional Wayne Measurement (FIM) Scale: 1 = Total Assistance (Subject = 0% +), 2 = Maximal Assistance (Subject = 25% +), 3 = Moderate Assistance (Subject = 50% +), 4 = Minimal Assistance (Subject = 75% +), 5 = Supervision, 6 = Modified Wayne (Device), 7 = Complete Wayne (Timely, Safely). Assessment Date/Time Source Assessment Type Assessment Skill Assessment Score Assessment Details No data available for this section
[2024-12-26 10:17] VITALS: BP 106/66; PULSE 79; RESP 18; TEMP 36.2; O2SAT 99
== END 2024-12-26 10:35 | disposition home or self-care (01) ==
PROVIDERS: Emergency Provider Nurse Practitioner Family; PCP Family Medicine
DX: L02.211 Cutaneous abscess of abdominal wall (principal); F41.9 Anxiety disorder, unspecified; F32.A Depression, unspecified; Z86.14 Personal history of Methicillin resistant Staphylococcus aureus infection; Z86.19 Personal history of other infectious and parasitic diseases; Z86.16 Personal history of COVID-19
CPT/HCPCS: 87070; 87075; 87181; 87205; 99213; G0463